=== PATIENT | female | born 1945 ===

== ENCOUNTER 2023-07-22 23:31 | Emergency (ER) | payer OTHER ==
[~2023-07-22] VITALS: Ht 157.5 cm; Wt 70.8 kg
[2023-07-22] MEDS ORDERED: CANDESARTAN CILE8 MG PO (23:43)
== END 2023-07-23 03:55 | disposition home or self-care (01) ==
LOC: ER 23:31
DX: I16.9 Hypertensive crisis, unspecified (principal); I10 Essential (primary) hypertension

== ENCOUNTER 2023-07-30 00:57 | Emergency (ER) | payer OTHER ==
[~2023-07-30] VITALS: Ht 157.5 cm; Wt 69.9 kg
[~2023-07-30 00:57] MED LIST: CANDESARTAN CILE8 MG PO
== END 2023-07-30 03:57 | disposition home or self-care (01) ==
LOC: ER 00:57
DX: I10 Essential (primary) hypertension (principal)

== ENCOUNTER 2023-09-05 07:54 | Outpatient (CLI) | payer OTHER | END 2023-09-05 08:00 | disposition home or self-care (01) | LOC: NUCLEAR 07:54 | PROVIDERS: ATTEND Internal Medicine Cardiovascular Disease | DX: I25.10 Atherosclerotic heart disease of native coronary artery without angina pectoris (principal) ==